=== PATIENT | female | born 1930 | race Caucasian/White ===

== ENCOUNTER 2016-11-05 15:15 | Inpatient (IN) | payer OTHER ==
[~2016-11-05] VITALS: Ht 165.1 cm; Wt 73.4 kg
[2016-11-05 16:09] LABS: HEMATOCRIT 33.2 % (36.0-46.0); MCH 23.4 PG (29.0-34.0); MCHC 30.1 G/DL (30.0-36.0); MCV 77.8 FL (83-99); MEAN PLAT.VOLUME 9.7 uM^3 (9.5-12.4); PLATELET COUNT 234 K/uL (156-360); RBC DIS.WIDTH-CV 19.9 % (11.8-14.6); RBC DIS.WIDTH-SD 49.9 % (39-53); RED BLOOD COUNT 4.27 M/uL (3.80-5.20); WHITE BLOOD COUNT 15.6 K/uL (4.1-10.2)
[2016-11-05 16:18] LABS: CHLORIDE 101 mEq/L (99-109); POTASSIUM 3.8 mEq/L (3.7-5.4); SODIUM 146 mEq/L (136-147)
[2016-11-05 16:20] LABS: GLUCOSE 136 mg/dL (70-99)
[2016-11-05 16:21] LABS: ANION GAP 14 MEQ/L (2-14)
[2016-11-05 16:22] LABS: TOTAL BILIRUBIN 0.5 mg/dL (0.0-1.0)
[2016-11-05 16:24] LABS: ALKALINE PHOSPHATASE 60 IU/L (3-129); GFR ESTIMATE (CALCULATED) 35 mL/min/
[2016-11-05 16:25] LABS: UREA NITROGEN (BUN) 68 mg/dL (9-23)
[2016-11-05 16:31] LABS: TROP-I INTERPRETATION NEGATIVE; TROPONIN-I 0.15 ng/mL (0.0-0.30)
[2016-11-05] MEDS ORDERED: AZITHROMYCIN500 M1 PO (18:34)
[2016-11-05] MEDS ORDERED: DILTIAZEM 24HR360 M1 PO (18:35)
[2016-11-05] MEDS ORDERED: DIGOXIN125 MCG PO (18:35)
[2016-11-05] MEDS ORDERED: OMEPRAZOLE40 M1 PO (18:36)
[2016-11-05] MEDS ORDERED: FUROSEMIDE40 MG PO (18:36)
[2016-11-05] MEDS ORDERED: KLOR-CON M2020 MEQ PO ×3 (18:37→18:39)
[2016-11-05] MEDS ORDERED: OCUVITE LUTEIN1 EAC2 PO (18:37)
[2016-11-05] MEDS ORDERED: DELTASONE20 M1 PO (18:39)
[2016-11-05] MEDS ORDERED: LISINOPRIL20 MG PO (18:40)
[2016-11-05] MEDS ORDERED: ADVAIR HFA120 INHALA IH (18:40)
[2016-11-05] MEDS ORDERED: XARELTO15 MG PO (18:40)
[2016-11-05] MEDS ORDERED: SERTRALINE HCL100 MG PO (18:40)
[2016-11-05] MEDS ORDERED: CARAFATE1 GM PO (18:41)
[2016-11-05] MEDS ORDERED: APRESOLINE25 MG PO (18:41)
[2016-11-05] MEDS ORDERED: TYLENOL EXTRA500 MG PO (18:42)
[2016-11-05] MEDS ORDERED: NYSTATIN100000 UN1 PO (18:42)
[2016-11-05] MEDS ORDERED: BENZONATATE200 MG PO (18:43)
[2016-11-05] MEDS ORDERED: MIRALAX119 GM PO (18:43)
[2016-11-05] MEDS ORDERED: DULCOLAX10 MG PR (18:43)
[2016-11-05] MEDS ORDERED: PHILLIPS'400 MG/5 M PO (18:43)
[2016-11-05] MEDS ORDERED: NITROSTAT0.4 MG SL (18:44)
[2016-11-05] MEDS ORDERED: ROBITUSSIN DM118 ML PO (18:45)
[2016-11-05] MEDS ORDERED: SALINE NASAL SP45 ML BOTH NARES (18:45)
[2016-11-05 23:51] LABS: TROP-I INTERPRETATION NEGATIVE; TROPONIN-I 0.15 ng/mL (0.0-0.30)
[2016-11-06 00:48] VITALS: BP 136/60
[2016-11-06 04:44] VITALS: BP 156/70; BP 166/70
[2016-11-06 05:50] LABS: MEAN PLAT.VOLUME 10.1 uM^3 (9.5-12.4); PLATELET COUNT 216 K/uL (156-360); RBC DIS.WIDTH-CV 20.2 % (11.8-14.6); RBC DIS.WIDTH-SD 53.8 % (39-53); RED BLOOD COUNT 4.25 M/uL (3.80-5.20); WHITE BLOOD COUNT 13.3 K/uL (4.1-10.2)
[2016-11-06 06:15] LABS: METH RESISTANT S AUREUS PCR NEGATIVE (NEGATIVE)
[2016-11-06 06:15] LABS: TROP-I INTERPRETATION NEGATIVE; TROPONIN-I 0.17 ng/mL (0.0-0.30)
[2016-11-06 06:17] LABS: ALKALINE PHOSPHATASE 59 IU/L (3-129); ANION GAP 13 MEQ/L (2-14); CHLORIDE 103 MEQ/L (99-109); GFR ESTIMATE (CALCULATED) 45 mL/min/; POTASSIUM 3.7 MEQ/L (3.7-5.4); SAMPLE HEMOLYSIS CHECK 0; SAMPLE ICTERIC CHECK 0; SAMPLE LIPEMIA CHECK 0; SODIUM 151 MEQ/L (136-147); TOTAL BILIRUBIN 0.6 MG/DL (0.0-1.0); UREA NITROGEN (BUN) 65 mg/dL (9-23)
[2016-11-06 06:18] LABS: GLUCOSE 81 mg/dL (70-99)
[2016-11-06 06:20] LABS: PROBE CHECK PASS; SPECIMEN PROCESSING CONTROL PASS
[2016-11-06 08:00] VITALS: BP 141/65
[2016-11-06 12:25] VITALS: BP 116/56
[2016-11-06 15:41] VITALS: BP 130/62
[2016-11-06 20:46] VITALS: BP 116/78
[2016-11-07 00:19] VITALS: BP 134/68
[2016-11-07 03:51] VITALS: BP 114/68
[2016-11-07 07:51] VITALS: BP 153/67
[2016-11-07 10:11] LABS: ANION GAP 11 MEQ/L (2-14); CHLORIDE 109 MEQ/L (99-109); POTASSIUM 3.4 MEQ/L (3.7-5.4); SAMPLE HEMOLYSIS CHECK 0; SAMPLE ICTERIC CHECK 0; SAMPLE LIPEMIA CHECK 0; SODIUM 154 MEQ/L (136-147)
[2016-11-07 10:17] LABS: GFR ESTIMATE (CALCULATED) > 59 mL/min/; UREA NITROGEN (BUN) 51 mg/dL (9-23)
[2016-11-07 10:21] LABS: GLUCOSE 106 mg/dL (70-99)
[2016-11-07 12:05] VITALS: BP 135/65
[2016-11-07 20:00] VITALS: BP 110/78
[2016-11-08 05:33] VITALS: BP 112/58
[2016-11-08 07:03] VITALS: BP 117/56
[2016-11-08 12:04] VITALS: BP 123/54
[2016-11-08 16:13] VITALS: BP 139/62
[2016-11-08 19:30] VITALS: BP 117/51
[2016-11-08 23:40] VITALS: BP 128/64
[2016-11-09 04:07] VITALS: BP 126/60
[2016-11-09 06:44] VITALS: BP 140/65
[2016-11-09] MEDS ORDERED: HYOSCYAMINE0.125 M2 PO (10:18)
[2016-11-09] MEDS ORDERED: ATIVAN INTE2 MG/1 ML PO (10:18)
[2016-11-09] MEDS ORDERED: MORPHINE CON20 MG/M1 SL (10:18)
== END 2016-11-09 14:00 | disposition hospice, home (50) | DRG 178 ==
LOC: EME 15:15 → 4EAST 22:38 → EDOF 22:38 → ENRESERV 22:46 → EDOF 11-06 00:17 → 4EAST 11-06 00:19
PROVIDERS: Emergency Medicine; Internal Medicine; Internal Medicine Cardiovascular Disease
DX: J69.0 Pneumonitis due to inhalation of food and vomit (principal); I48.0 Paroxysmal atrial fibrillation; I50.32 Chronic diastolic (congestive) heart failure; E87.0 Hyperosmolality and hypernatremia; I11.0 Hypertensive heart disease with heart failure; J44.0 Chronic obstructive pulmonary disease with (acute) lower respiratory infection; I27.20 Pulmonary hypertension, unspecified; E86.0 Dehydration; N17.9 Acute kidney failure, unspecified; S91.301A Unspecified open wound, right foot, initial encounter; B37.0 Candidal stomatitis; F03.90 Unspecified dementia, unspecified severity, without behavioral disturbance, psychotic disturbance, mood disturbance, and anxiety; N39.0 Urinary tract infection, site not specified; E78.5 Hyperlipidemia, unspecified; R13.10 Dysphagia, unspecified; K21.9 Gastro-esophageal reflux disease without esophagitis; D64.9 Anemia, unspecified; I71.4 Abdominal aortic aneurysm, without rupture; J44.9 Chronic obstructive pulmonary disease, unspecified; K92.2 Gastrointestinal hemorrhage, unspecified; B95.2 Enterococcus as the cause of diseases classified elsewhere; Z66 Do not resuscitate; Z51.5 Encounter for palliative care; Z86.711 Personal history of pulmonary embolism; Z86.718 Personal history of other venous thrombosis and embolism; Z79.01 Long term (current) use of anticoagulants; Z99.81 Dependence on supplemental oxygen; Z87.01 Personal history of pneumonia (recurrent); Z87.891 Personal history of nicotine dependence
CPT/HCPCS: 70450; 71020; 71250; 74230; 80048; 80053; 82272; 83605; 83880; 84484; 85027; 86850; 86900; 86901; 87040; 87070; 87205; 87641; 92610 GN; 92611 GN; 93005; 93306; 94640; 94640 76; 94664; 94799; 99281; 99285; C1753; J0696; J1170; J2060; J2270; J7030; J7050; S0030